=== PATIENT | female | born 1970 | race Caucasian/White ===

== ENCOUNTER → 2023-07-02 08:13 | Outpatient (REF) | payer OTHER, SELFPAY | LOC: WDC 08:13 | PROVIDERS: ATTENDING PHYSICIAN Obstetrics & Gynecology; FAMILY PHYSICIAN Family Medicine | DX: Z12.31 Encounter for screening mammogram for malignant neoplasm of breast (principal) | CPT/HCPCS: 77063; 77067 ==

== ENCOUNTER → 2024-02-21 07:04 | Outpatient (REF) | payer OTHER, SELFPAY | LOC: EMG 07:04 | PROVIDERS: ATTENDING PHYSICIAN Family Medicine | DX: R20.2 Paresthesia of skin (principal); Z86.69 Personal history of other diseases of the nervous system and sense organs; R20.0 Anesthesia of skin | CPT/HCPCS: 95886; 95911 ==

== ENCOUNTER → 2024-04-17 07:53 | Outpatient (REF) | payer OTHER, SELFPAY | LOC: MRI 3T 07:53 | PROVIDERS: ATTENDING PHYSICIAN Psychiatry & Neurology Neurology; FAMILY PHYSICIAN Family Medicine | DX: G37.3 Acute transverse myelitis in demyelinating disease of central nervous system (principal) | CPT/HCPCS: 72156; A9575 ==

== ENCOUNTER → 2024-04-26 09:54 | Outpatient (REF) | payer OTHER, SELFPAY | LOC: RAD 09:54 | PROVIDERS: ATTENDING PHYSICIAN Family Medicine | DX: M25.561 Pain in right knee (principal) | CPT/HCPCS: 73564; 93971 ==

== ENCOUNTER → 2024-07-06 07:52 | Outpatient (REF) | payer OTHER, SELFPAY | LOC: WDC 07:52 | PROVIDERS: ATTENDING PHYSICIAN Obstetrics & Gynecology; FAMILY PHYSICIAN Family Medicine | DX: Z12.31 Encounter for screening mammogram for malignant neoplasm of breast (principal) | CPT/HCPCS: 77063; 77067 ==

== ENCOUNTER 2024-08-07 17:57 | Outpatient (RCR) | payer OTHER, SELFPAY | END 2024-08-07 23:59 | disposition home or self-care (01) | LOC: RPT 17:57 | PROVIDERS: ATTENDING PHYSICIAN Nurse Practitioner Family; FAMILY PHYSICIAN Family Medicine | DX: M48.02 Spinal stenosis, cervical region (principal); M48.062 Spinal stenosis, lumbar region with neurogenic claudication (principal); M50.30 Other cervical disc degeneration, unspecified cervical region | CPT/HCPCS: 97110; 97140; 97162; 97535 ==

== ENCOUNTER → 2024-08-21 07:38 | Outpatient (REF) | payer OTHER, SELFPAY | LOC: RAD 07:38 | PROVIDERS: ATTENDING PHYSICIAN Student in an Organized Health Care Education/Training Program | DX: R20.2 Paresthesia of skin (principal) | CPT/HCPCS: 71046; 93923; 93930 ==

== ENCOUNTER 2024-09-05 15:54 | Outpatient (RCR) | payer OTHER, SELFPAY | END 2024-09-06 06:52 | disposition home or self-care (01) | LOC: RPT 15:54 | PROVIDERS: ATTENDING PHYSICIAN Nurse Practitioner Family; FAMILY PHYSICIAN Family Medicine | DX: M48.02 Spinal stenosis, cervical region (principal); M50.30 Other cervical disc degeneration, unspecified cervical region; M48.062 Spinal stenosis, lumbar region with neurogenic claudication; Z73.6 Limitation of activities due to disability | CPT/HCPCS: 97110; 97140; 97535 ==

== ENCOUNTER 2024-09-18 18:55 | Outpatient (RCR) | payer OTHER, SELFPAY | END 2024-09-18 23:59 | disposition home or self-care (01) | LOC: RPT 18:55 | PROVIDERS: ATTENDING PHYSICIAN Student in an Organized Health Care Education/Training Program; FAMILY PHYSICIAN Family Medicine | DX: M22.2X1 Patellofemoral disorders, right knee (principal); M25.561 Pain in right knee; Z73.6 Limitation of activities due to disability; M17.11 Unilateral primary osteoarthritis, right knee; M62.81 Muscle weakness (generalized); R26.89 Other abnormalities of gait and mobility; X58.XXXD Exposure to other specified factors, subsequent encounter | CPT/HCPCS: 97110; 97162; 97535 ==

== ENCOUNTER → 2024-09-22 15:06 | Outpatient (REF) | payer OTHER, SELFPAY | LOC: MRI 15:06 | PROVIDERS: ATTENDING PHYSICIAN Physician Assistant; FAMILY PHYSICIAN Family Medicine | DX: M25.561 Pain in right knee (principal) | CPT/HCPCS: 73721 ==

== ENCOUNTER → 2024-10-16 07:46 | Outpatient (REF) | payer OTHER, SELFPAY | LOC: WDC 07:46 | PROVIDERS: ATTENDING PHYSICIAN Obstetrics & Gynecology; FAMILY PHYSICIAN Family Medicine | DX: R92.333 Mammographic heterogeneous density, bilateral breasts (principal) | CPT/HCPCS: 76641 ==

== ENCOUNTER 2024-10-23 17:50 | Outpatient (RCR) | payer OTHER, SELFPAY | END 2024-10-23 23:59 | disposition home or self-care (01) | LOC: RPT 17:50 | PROVIDERS: ATTENDING PHYSICIAN Student in an Organized Health Care Education/Training Program; FAMILY PHYSICIAN Family Medicine | DX: M22.2X1 Patellofemoral disorders, right knee (principal); M25.561 Pain in right knee; Z73.6 Limitation of activities due to disability; M17.11 Unilateral primary osteoarthritis, right knee; M62.81 Muscle weakness (generalized); R26.89 Other abnormalities of gait and mobility; X58.XXXD Exposure to other specified factors, subsequent encounter | CPT/HCPCS: 97110; 97116; 97535 ==

== ENCOUNTER → 2024-11-29 07:48 | Outpatient (REF) | payer SELFPAY | LOC: HWRAD 07:48 | PROVIDERS: ATTENDING PHYSICIAN Student in an Organized Health Care Education/Training Program | DX: E78.49 Other hyperlipidemia (principal) | CPT/HCPCS: 75571 ==

== ENCOUNTER 2024-12-06 21:04 | Emergency (ER) | payer OTHER, SELFPAY ==
[2024-12-06 21:10] VITALS: BP 129/84
[2024-12-06 21:26] LABS: Hematocrit 36.4 % (37.0-47.0); Hemoglobin 12.6 g/dL (12.0-16.0); Mean Corp Hgb Conc. 34.6 g/dL (33.0-37.0); Mean Corpuscular Volume 85.8 fL (81.0-99.0); Nucleated Red Blood Cells % 0 %; Platelet Count 247 10^3/uL (130-400); Red Cell Dist. Width 13.2 % (11.5-14.5)
[2024-12-06 21:38] LABS: HCG, Serum Qualitative Screen Negative
[2024-12-06 21:45] LABS: ALT (SGPT) 23 U/L (0-35); AST (SGOT) 27 U/L (14-36); Albumin 4.5 g/dl (3.5-5.0); Alkaline Phosphatase 59 U/L (38-126); Blood Urea Nitrogen 15 mg/dl (7-17); Calcium 9.5 mg/dl (8.4-10.2); Carbon Dioxide 28 mmol/L (22-30); Chloride 106 mmol/L (98-107); Glucose 131 mg/dl (70-99); Potassium 4.0 mmol/L (3.5-5.1); Sodium 138 mmol/L (135-145); Total Protein 7.5 g/dl (6.3-8.2); eGFR > 60.00
[2024-12-06 21:53] LABS: Troponin I < 0.012 ng/ml
[2024-12-06 22:42] VITALS: BP 104/77
[2024-12-06 23:00] VITALS: BP 97/69
[2024-12-07] VITALS: BP 100/68
--- NOTE | 2024-12-07 00:30 | ED.GENMED ---
History of Present Illness
General
Chief Complaint: Chest Pain
Time Seen by Provider: 12/07/24 00:03
Nursing documentation reviewed up to this point in time: agreed with
History of Present Illness
History of Present Illness:
54-year-old female presents to the ER for evaluation of feeling of chest pressure which has been present for the last 24 hours. Patient states that she has resumed taking her omeprazole starting last week due to increasing frequency of burning
discomfort associated with prior flares of GERD. She reports that today the symptoms were more significant. No radiation to the back. No abdominal discomfort. No nausea vomiting or diarrhea. No fevers. No dyspnea. No exertional component to
the pain. She reports that the pain has improved somewhat since arriving to the ER without any further treatment. Patient did take Tums earlier today with negligible change in her pain. She denies any peripheral edema. No prior personal history
of ACS, and in fact has been having routine screening outpatient testing through her primary care physician including calcium score. She has been eating and drinking without any difficulty.
Review of Systems
Review of Systems
Allergies reviewed?: Yes
Phy Exam
Physical Exam
Physical Exam:
Patient is awake, alert, appears in no acute distress, mucous membranes moist, conjunctiva pink, PERRL, moving all extremities symmetrically without focal deficit, heart regular rate and rhythm without murmurs or ectopy, lungs are clear to
auscultation without wheezes rales or rhonchi, abdomen is soft and nontender, extremities without edema, 2+ DP pulses present bilateral feet, GCS is 15
SULEIMAN Score
Is patient's age greater than or equal to 65 years: No
Does patient have 3 or more CAD risk factors?: No
Does patient have known CAD: No
Has patient used ASA in past seven days?: No
Has patient had severe angina in past 24 hrs?: No
Are patient's cardiac markers elevated?: No
Are there ST changes greater 0.05mm?: No
Result score?: 0
Scores
Heart Score for Chest Pain Patients
STEMI patient?: No
History: Slightly or Non-Suspicious
ECG: Normal
Age: >45 - <65 years
Risk Factors: 1 or 2 Risk Factors
Troponin: </= Normal Limit
Heart Score for Chest Pain Patients: 2
Heart Score Risk: 2.5% MACE over next 6 weeks
Course
Orders/Labs/Results
Orders:
Orders
12/06/24 21:05
ECG [Electrocardiogram (*1)] Urgent
Reason for Study: Chest Pain
EKG- Treatment ONCE
12/06/24 21:09
Test Result ONCE
12/06/24 21:14
Complete Blood Count/With Diff Urgent
Comprehensive Metabolic Panel Urgent
HCG, Serum Qualitative Screen Urgent
Comment: Notify provider if positive test present
Troponin I Urgent
12/07/24 00:05
CR Chest - 2 Views Urgent
Comment:
Reason For Exam: chest pain
12/07/24 00:51
Mag Hydrox/Al Hydrox/Simeth [Maalox] 30 ml Phenobarb/Hyoscy/Atropine/Scop [] 10 ml Viscous Lidocaine 2% [Xylocaine Viscous Cup] 10 ml PO NOW
12/07/24 00:54
Mag Hydrox/Al Hydrox/Simeth [Maalox] 30 ml .ROUTE .STK-MED ONE
Phenobarb/Hyoscy/Atropine/Scop [] 10 ml .ROUTE .STK-MED ONE
Viscous Lidocaine 2% [Xylocaine Viscous Cup] 15 ml .ROUTE .STK-MED ONE
Abnormal Lab Results
12/06/24
21:14
Hct 36.4 L %
(37.0-47.0)
Glucose 131 H mg/dl
(70-99)
12/06/24 21:14
12/06/24 21:14
Troponin is negative. Electrolytes within normal limits. Hemoglobin normal. White count reassuring
Vital Signs
Initial and Last Documented VS:
Initial Vital Signs
Temp Pulse Resp BP Pulse Ox
98.2 F 86 16 129/84 98
12/06/24 21:10 12/06/24 21:10 12/06/24 21:10 12/06/24 21:10 12/06/24 21:10
Last Documented Vital Signs
Temp Pulse Resp BP Pulse Ox
98.2 F 71 20 117/86 97
12/06/24 21:10 12/07/24 01:00 12/07/24 01:00 12/07/24 01:00 12/07/24 01:00
MDM/Problems Addressed
Differential Diagnosis Includes:
Differential diagnosis to consider but not limited to GERD, esophageal spasm, ACS along with other etiologies considered
Chronic conditions affecting care:
GERD
*Radiology
Radiology exam reviewed: preliminary read by ED provider (I independently viewed and interpreted two-view chest showing no acute process, clear lungs, normal cardiac silhouette)
*Pulse Oximetry
SaO2: 95
Oxygen Mode of Delivery: Room air
Patient hypoxic: no
*EKG
Interpreted by ED Provider?: Yes (I independently viewed and interpreted twelve-lead EKG showing normal sinus rhythm, rate 75, normal axis, normal intervals, this is a normal tracing similar to prior from 02/02/2023)
*Nut Cracker Interpretation
Rate: normal (I independently viewed and interpreted rhythm strip showing normal sinus rhythm, no ectopy)
*Critical Care Note
Total Time (30-74mins, 75-104mins- exclusive of procedures): Not Applicable
Update Note
Update Note:
I discussed with patient present at bedside very reassuring workup in the ER including normal EKG, negative troponin, normal chest x-ray. I discussed with her more likely etiology symptoms related to GERD/esophageal spasm and treatment of
same. Patient feels comfortable with plan for discharge and further outpatient workup with her automatic serging machine operator-she is currently scheduled to have a colonoscopy in January. I discussed with patient possible addition of EGD. Given patient age
and family history of ACS, she is also provided with cardiology referral information. Patient and feel comfortable with plan for discharge and had no questions prior to leaving the department.
ED Attending Note
-
Portions of this chart may have been created with voice recognition software.� Occasional wrong word or��sound alike� substitutions may have occurred due to the inherent limitations of voice recognition software.
Discharge Plan
Departure
Patient Disposition: Home (Routine Discharge)
Date of Disposition: 12/07/24
Time of Disposition: 00:54
Patient with high blood pressure during this ER visit?: No
Discharge Problem:
Chest pain, GERD (gastroesophageal reflux disease)
Instructions: Acid Reflux and GERD in Adults (DC), Chest Pain CBC Follow Up
Prescriptions:
No Action
simvastatin [Zocor] 10 mg Tablet
10 mg PO HS
clarithromycin 500 mg Tablet Extended Release 24 Hr
500 mg PO BID
Rx Instructions:
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
esomeprazole magnesium [Nexium] 40 mg Capsule,Delayed Release(Dr/Ec)
40 mg PO Q48H
methylprednisolone [Medrol (Pb)] 4 mg Tablets,Dose Pack
0 mg PO PER PKG DIR
Rx Instructions:
patient chicken picker on 02/01/23, patient also stated she on her 2nd day
aspirin 81 mg Tablet,Chewable
81 mg PO DAILY Qty: 100 0RF
Referrals:
Darwin Pierson MD [Family Provider, Family Practice]
Activity Restrictions/Additional Instructions:
Follow a bland low acid diet for the next week. Continue using omeprazole and add Pepcid as needed for additional acid relief. Follow-up with your automatic serging machine operator as scheduled or sooner if able for further evaluation and care. Return to the ER
for any concern
Interventions
Interventions:
*Risk Screen - Suicide Last Done: 12/06/24 21:10
*Neglect/Abuse Screening Last Done: 12/06/24 21:10
*Nursing Disposition Last Done: 12/07/24 01:02
ED- Cardiac Assessment Last Done: 12/06/24 22:30
Discharge Date and Time
Discharge Date/Time: 12/07/24 01:03
Print Language: SLOVAK
[2024-12-07] MEDS: MAALOX 50 PO (00:56)
[2024-12-07 01:00] VITALS: BP 117/86
== END 2024-12-07 01:03 | disposition home or self-care (01) ==
LOC: EMR 21:04
PROVIDERS: Emergency Medicine; EMERGENCY PHYSICIAN Emergency Medicine; FAMILY PHYSICIAN Student in an Organized Health Care Education/Training Program
DX: R07.89 Other chest pain (principal); K21.9 Gastro-esophageal reflux disease without esophagitis
CPT/HCPCS: 99285; 71046; 80053; 84484; 84703; 85025; 93005

== ENCOUNTER → 2024-12-19 07:50 | Outpatient (REF) | payer OTHER, SELFPAY | LOC: RAD 07:50 | PROVIDERS: ATTENDING PHYSICIAN Student in an Organized Health Care Education/Training Program | DX: Z13.820 Encounter for screening for osteoporosis (principal) | CPT/HCPCS: 77080 ==

== ENCOUNTER → 2024-12-22 06:57 | Outpatient (REF) | payer OTHER, SELFPAY | LOC: MRI 3T 06:57 | PROVIDERS: ATTENDING PHYSICIAN Surgery Vascular Surgery; FAMILY PHYSICIAN Student in an Organized Health Care Education/Training Program | DX: G54.0 Brachial plexus disorders (principal) | CPT/HCPCS: 73221 ==

== ENCOUNTER → 2025-01-01 08:10 | Outpatient (REF) | payer OTHER, SELFPAY | LOC: RCS 08:10 | PROVIDERS: ATTENDING PHYSICIAN Internal Medicine; FAMILY PHYSICIAN Student in an Organized Health Care Education/Training Program | DX: R07.9 Chest pain, unspecified (principal) | CPT/HCPCS: 93306 ==

== ENCOUNTER → 2025-01-02 08:18 | Outpatient (REF) | payer OTHER, SELFPAY | LOC: RCS 08:18 | PROVIDERS: ATTENDING PHYSICIAN Internal Medicine; FAMILY PHYSICIAN Student in an Organized Health Care Education/Training Program | DX: R07.9 Chest pain, unspecified (principal) | CPT/HCPCS: 93017; 93350 ==

== ENCOUNTER 2025-01-12 06:22 | Day surgery (SDC) | payer OTHER, SELFPAY | END 2025-01-12 12:33 | disposition home or self-care (01) | LOC: GI 06:22 | PROVIDERS: ATTENDING PHYSICIAN Internal Medicine Gastroenterology | DX: Z12.11 Encounter for screening for malignant neoplasm of colon (principal); D12.2 Benign neoplasm of ascending colon; K62.1 Rectal polyp; K64.8 Other hemorrhoids; K29.50 Unspecified chronic gastritis without bleeding; K22.89 Other specified disease of esophagus; K31.89 Other diseases of stomach and duodenum; R12 Heartburn | CPT/HCPCS: 45385; 45380; 43239; 88305; 88342 ==

== ENCOUNTER → 2025-04-16 07:23 | Outpatient (REF) | payer OTHER, SELFPAY | LOC: RAD 07:23 | PROVIDERS: ATTENDING PHYSICIAN Student in an Organized Health Care Education/Training Program | DX: R10.12 Left upper quadrant pain (principal) | CPT/HCPCS: 76700 ==